=== PATIENT | male | born 1950 | race Caucasian/White ===

== ENCOUNTER 2020-11-24 05:43 | Inpatient (IN) ==
[2020-11-24] MEDS ORDERED: Buffered Lidocaine 1% SYRIN 1 ml INTRADERM ONE (06:00)
[2020-11-24] MEDS ORDERED: Lactated Ringers 1000 ml BAG 1,000 ML IV SCH ×3 (06:00→21:31)
[2020-11-24] MEDS ORDERED: Heparin 5000 UNITS/ML 1 mL VIAL ONE (06:14)
[2020-11-24] MEDS ORDERED: Ertapenem 1 GM in NS 0.9% 50 ML IVPB ONE (07:00)
[2020-11-24] MEDS ORDERED: Propofol 10 MG/ML 20 ML BTL ONE (07:22)
[2020-11-24] MEDS ORDERED: Lidocaine 2% PF 5 ML VIAL ONE (07:22)
[2020-11-24] MEDS ORDERED: Midazolam 2 mg/2 ml VIAL 1 mg/ml 2 ml VIAL (2 mg) ONE (07:23)
[2020-11-24] MEDS ORDERED: Rocuronium 50 mg VIAL 10 mg/ml 5 ml VIAL (50 mg) ONE ×3 (07:23→12:23)
[2020-11-24] MEDS ORDERED: fentaNYL 100 mcg/2 ml 50 MCG/ML VIAL ONE (07:23)
[2020-11-24] MEDS ORDERED: Ketamine HCL 50 mg/ml 10 ml VIAL (500 MG) ONE (07:24)
[2020-11-24] MEDS ORDERED: Bupivacaine 0.25% EPI 200,000 30 ML SDV ONE (07:39)
[2020-11-24] MEDS ORDERED: Sevoflurane BOTTLE ONE ×2 (11:08→13:15)
[2020-11-24] MEDS ORDERED: Ondansetron 4 mg VIAL 2 MG/ML 2 ml VIAL IV PRN ×2 (11:13→15:32)
[2020-11-24] MEDS ORDERED: Naloxone 0.4 mg VIAL 0.4 mg/ml 1 ml VIAL IV PRN (11:13)
[2020-11-24] MEDS ORDERED: Ondansetron 4 mg VIAL 2 MG/ML 2 ml VIAL ONE (11:48)
[2020-11-24] MEDS ORDERED: Dexamethasone IV 4 MG/ML VIAL 1 ml VIAL ONE (11:48)
[2020-11-24] MEDS ORDERED: Phenylephrine IV 10 MG/ML 1 ml VIAL ONE (12:11)
[2020-11-24] MEDS ORDERED: ROPIVACAINE 5 MG/ML 30 ML BTL (0.5%) ONE (14:55)
[2020-11-24] MEDS ORDERED: HYDROmorphone 1 MG/1 ML SYRINGE IV SLOW PU PRN (15:32)
[2020-11-24] MEDS ORDERED: HYDROmorphone 1 MG/1 ML SYRINGE ONE (16:28)
[2020-11-24] MEDS: HYDROmorphone 1 MG/1 ML SYRINGE IV PRN ×2 (16:29→16:46)
[2020-11-24] MEDS: Heparin 5000 UNITS/ML 1 mL VIAL SUBCUT SCH (23:00)
[2020-11-25 05:52] LABS: ABS Lymphocytes 0.5 10^3/ul (1.0-4.8); ABS Monocytes 0.3 10^3/ul (0-0.8); ABS Neutrophils 7.2 10^3/ul (1.5-7.7); Eosinophil % 0.4 %; Hematocrit 41 % (42-52); Hemoglobin 13.6 g/dL (14.0-18.0); Lymphocyte % 6.1 %; Mean Corpuscular HGB Conc 33 g/dL (31-36); Mean Corpuscular Hemoglobin 31 pg (27-31); Mean Corpuscular Volume 92 fL (80-94); Mean Platelet Volume 8.5 fL (7.4-10.4); Nucleated Red Blood Cells % 0.1; Platelet Count 225 10^3/uL (150-450); Red Blood Count 4.42 10^6 /uL (4.18-5.48); Red Cell Distribution Width 15 % (10-15)
[2020-11-25] MEDS: Heparin 5000 UNITS/ML 1 mL VIAL SUBCUT SCH ×3 (06:04→22:33)
[2020-11-25 06:09] LABS: Calcium 8.5 mg/dL (8.6-10.3); EGFR African American 117.7 (>60); EGFR Non-African American 97.2 (>60); Potassium 3.6 mmol/L (3.5-5.0)
[2020-11-26] MEDS: Heparin 5000 UNITS/ML 1 mL VIAL SUBCUT SCH (06:04)
[2020-11-26 07:59] VITALS: BP 124/73
== END 2020-11-26 12:15 | disposition home or self-care (01) | DRG 661 ==
LOC: AA 05:43 → SSU 17:11
PROVIDERS: ADMIT Surgery; ATTEND Surgery